=== PATIENT | male | born 1990 | race Caucasian/White ===

== ENCOUNTER 2020-05-19 13:15 | Emergency (ER) | payer BC, SELFPAY ==
[2020-05-19 13:16] VITALS: BP 147/99; PULSE 98; RESP 16; TEMP 35.8; O2SAT 98; BMI 33.0
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
[2020-05-19] MEDS: Naproxen 500 MG Tablet PO (13:45)
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
[2020-05-19 14:51] VITALS: RESP 16
== END 2020-05-19 14:51 | disposition home or self-care (01) ==
LOC: ED 13:47
PROVIDERS: Emergency Provider Emergency Medicine
DX: S22.42XA Multiple fractures of ribs, left side, initial encounter for closed fracture (principal); V86.56XA Driver of dirt bike or motor/cross bike injured in nontraffic accident, initial encounter; Y93.55 Activity, bike riding; Y92.89 Other specified places as the place of occurrence of the external cause; Y99.8 Other external cause status
CPT/HCPCS: 71101; 99283

== ENCOUNTER 2022-04-11 22:41 | Emergency (ER) | payer BC, SELFPAY ==
[2022-04-11 22:42] VITALS: BP 143/77; PULSE 127; RESP 19; TEMP 36.5; O2SAT 99; BMI 33.6
[2022-04-11] MEDS: dexAMETHasone 10 MG/ML Vial PO.IVFORM (23:34)
--- NOTE | 2022-04-12 00:25 | EDS_ITS ---
HPI History of Present Illness Chief Complaint: Sore Throat Narrative Narrative: Patient is a 32-year-old male with no reported significant past medical history. He states he went and saw his family doctor roughly 5 days ago as he had noticed some pain on the right side of his neck. At that time was felt the pain was musculoskeletal so he was started on Flexeril and naproxen. Patient states in the last few days he is now had subjective fevers and chills and he has noticed sore throat with mild congestion and drainage. He denies any difficulty swallowing but states it is painful to do so. He states he is concerned he has developed an infectious process and with this comes in for evaluation [facility] Home Medications naproxen 500 mg tablet 500 mg PO BID #14 tabs 05/19/20 [Rx Last Taken Unknown] prednisone 20 mg tablet 40 mg PO DAILY 5 days #10 tabs 04/12/22 [Rx Last Taken Unknown] Allergy/AdvReac Type Severity Reaction Status Date / Time No Known Allergies Allergy Verified 04/11/22 22:42 Social History Smoking Status: Never smoker [facility] ED Constitutional Constitutional ED: Reports chills and fever(s) ENT ENT ED: Reports ear pain, rhinorrhea and sore throat Cardiovascular Cardiovascular: Denies chest pain Respiratory/Chest Respiratory/Chest: Reports cough; Denies dyspnea Gastrointestinal Gastrointestinal: Denies abdominal pain, diarrhea, nausea or vomiting Genitourinary Genitourinary ED: Denies dysuria Musculoskeletal Musculoskeletal: Reports neck pain Integumentary Denies rash Neurologic Neurologic: Denies headache(s) Hematologic/Lymphatic Hematologic/Lymphatic: Denies easy bleeding or easy bruising EXAM Physical Exam Const Vital Signs: 04/11/22 22:42 Temperature 97.7 F L Temperature Source Temporal Pulse Rate 127 H Respiratory Rate 19 H Blood Pressure 143/77 H Blood Pressure Mean 99 Pulse Ox 99 Oxygen Delivery Method Room Air Positive well nourished and well developed General Appearance ED: well developed HEENT Reports moist mucous membranes HEENT Narrative: Bilateral TMs are retracted but show no secondary changes to suggest infection Nasal mucosa is hyperemic and boggy with enlarged inferior nasal turbinate Patient has diffuse erythema with +1-2 bilateral tonsil hypertrophy and exudates present. There is no hard palate petechiae noted. No trismus change in voice or difficulty with secretions. Eyes PERRL and EOMs intact bilaterally Neck supple Neck Narrative: Positive right anterior cervical lymphadenopathy noted Resp normal respiratory effort and clear to auscultation bilaterally Cardio regular rhythm Rate: tachycardic GI normal to inspection, nondistended, normoactive bowel sounds, non-tender, non- distended and no masses Auscultation: normoactive bowel sounds Palpation: soft Extremity normal to inspection Neuro oriented x3 and CN's II-XII intact bilaterally Sensorium / Orientation: alert Psych mental status grossly normal Skin no rashes or lesions noted MDM MDM MDM Narrative Medical decision making narrative: Patient presented to the ER tachycardic but otherwise afebrile and in no acute respiratory distress. He did not have any difficulty with secretions or change in voice or respiratory compromise so I felt that there was no need for CT to rule out retropharyngeal or peritonsillar abscess. His history is most consistent with a viral infection as he states he has had ear pain nasal congestion drainage and slight cough. Therefore COVID test was obtained but as he does have tonsillar perjury with exudates strep pharyngitis is also a possibility so strep swab was ordered as well. COVID and strep test were negative indicating this is a viral pharyngitis. As patient does not have unilateral posterior lymphadenopathy I do not feel this is mono. At this time as concern for peritonsillar abscess retropharyngeal abscess or epiglottitis is low and patient has no signs of airway compromise or respiratory distress he will be given symptomatic medication and is otherwise safe for discharge. Discharge Plan Triage Chief Complaint: Sore Throat ED Provider: Ang Gentile Dx/Rx/DC Orders Clinical Impression: Pharyngitis, Lymphadenopathy Instructions: Lymphadenopathy, ED Pharyngitis, Viral Prescriptions: New prednisone 20 mg tablet 40 mg PO DAILY 5 Days Qty: 10 0RF No Action naproxen 500 MG tablet 500 mg PO BID Qty: 14 0RF Primary Care Provider: [facility] ,Out of Referrals: [facility] ,Out of [Primary Care Provider] - Activity Restrictions/Additional Instructions: Please stop the cyclobenzaprine/Flexeril as your symptoms are related to a viral infection and not muscle strain. Use Tylenol and/or Motrin for pain control and the steroid as directed to control inflammation. If you have any further concerns or worsening of symptoms please return to the ER for repeat evaluation Disposition Disposition: Home, Self Care Discharge Date/Time: 04/12/22 00:45
== END 2022-04-12 00:45 | disposition home or self-care (01) ==
PROVIDERS: Emergency Provider Emergency Medicine; Visit Provider Emergency Medicine
DX: J02.9 Acute pharyngitis, unspecified (principal); R59.9 Enlarged lymph nodes, unspecified; Z79.52 Long term (current) use of systemic steroids; Z20.822 Contact with and (suspected) exposure to COVID-19
CPT/HCPCS: 87811; 87880; 99283

== ENCOUNTER 2023-03-18 10:52 | Emergency (ER) | payer BC, SELFPAY ==
[2023-03-18 10:53] VITALS: BP 140/97; PULSE 95; RESP 18; TEMP 36.5; O2SAT 98; BMI 33.5
--- NOTE | 2023-03-18 13:48 | ED.RN ---
PT IS SITTING IN HIS CHAIR ON HIS PHONE WITH NO DISTRESS NOTED.
== END 2023-03-18 14:32 | disposition left against medical advice (07) ==
LOC: ED 14:33
DX: Z53.21 Procedure and treatment not carried out due to patient leaving prior to being seen by health care provider (principal)